=== PATIENT | male | born 1985 | race African-American/Black ===

== ENCOUNTER 2019-05-19 15:33 | Emergency (ER) | payer SELFPAY ==
[2019-05-19 15:48] VITALS: BP 118/70
--- NOTE | 2019-05-19 15:53 | Emergency Department Report ---
ED Laceration HPI - HPI Chief Complaint: Wound/Laceration Stated Complaint: HAND LAC Occurred When: Yesterday Location: Upper Extremity (left thumb) Tetanus Status: Not up to Date Laceration Symptoms: Yes Pain, No Foreign Body Sensation, No Numbness, No Weakness Other History: 33 y/o male comes in for laceration to left thumb since last night about 8 pm. Was using a knife and accidental cut hiself. Not UTD on tetanus. ED Review of Systems ROS: Stated complaint: HAND LAC Other details as noted in HPI Comment: All other systems reviewed and negative ED Past Medical Hx - Past Medical History Previous Medical History?: No - Surgical History Past Surgical History?: No Laceration Physical Exam - Exam General: Vital signs noted. No distress. Alert and acting appropriately. Wound Length (cm): 3 Laceration Location: Upper Extremity (left thumb) ED Medical Decision Making - Medical Decision Making 33 y/o male comes in for laceration to left thumb. Adhesive glue to repair. Critical care attestation.: If time is entered above; I have spent that time in minutes in the direct care of this critically ill patient, excluding procedure time. ED Disposition Clinical Impression: Laceration of left thumb Qualifiers: Encounter type: initial encounter Damage to nail status: without damage Foreign body presence: unspecified Qualified Code(s): S61.012A - Laceration without foreign body of left thumb without damage to nail, initial encounter Disposition: DC-01 TO HOME OR SELFCARE Is pt being admited?: No Does the pt Need Aspirin: No Condition: Stable Instructions: Skin Adhesive Care (ED) Additional Instructions: Keep wound clean and dry.
== END 2019-05-19 15:40 | disposition home or self-care (01) ==
LOC: TRG 15:33
DX: S61.012A Laceration without foreign body of left thumb without damage to nail, initial encounter (principal); W26.0XXA Contact with knife, initial encounter; Y93.89 Activity, other specified; Y92.89 Other specified places as the place of occurrence of the external cause; Y99.8 Other external cause status